=== PATIENT | female | born 1995 | race Caucasian/White ===

== ENCOUNTER 2019-04-27 14:31 | Emergency (ER) | payer BC ==
[~2019-04-27] VITALS: Ht 162.6 cm; Wt 54.9 kg
[2019-04-27 14:55] VITALS: BP 121/64
--- NOTE | 2019-04-27 14:59 | NUR ---
PT TO WAIT IN [facility]. [id number]. TACHY AT 105
--- NOTE | 2019-04-27 15:04 | NUR ---
PT STATES UNABLE TO GIVE URINE
--- NOTE | 2019-04-27 15:46 | NUR ---
EKG IN TRIAGE ROOM BY MAYELIN VELEZ
--- NOTE | 2019-04-27 16:27 | NUR ---
PT TO ER BED 5
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
--- NOTE | 2019-04-27 19:09 | NUR ---
Pt report given to ALEKS MARSHALL. Transfer of care at this time.
--- NOTE | 2019-04-27 19:10 | NUR ---
REPORT RECEIVED FROM [place] RN. PT IS AWAKE, SITTING ON BED. FATHER AT BEDSIDE. HR 110. C/O ANXIETY. DR ARZOLA AWARE. WILL CONTINUE TO MONITOR.
--- NOTE | 2019-04-27 20:10 | NUR ---
Dr. Stovall examining patient.
[2019-04-27] MEDS ORDERED: LORazepam 1 MG TAB PO ONE (20:25)
[2019-04-27 20:46] VITALS: BP 102/61
--- NOTE | 2019-04-27 20:46 | NUR ---
PT DISCHARGE WITH PAPERWORK. NO RX PROVIDED. EDUCATED PT REGARDING DISCHARGE DIAGNOSIS. EDUCATED PT THE USE OF NONPHARMACOLOGICAL INTERVENTIONS DURING ANXIETY. PT VERBALIZED UNDERSTANDING OF TEACHING. PT VSS. ALL QUESTIONS ANSWERED.
== END 2019-04-27 20:46 | disposition home or self-care (01) ==
LOC: MED 14:31
DX: F41.9 Anxiety disorder, unspecified (principal)
CPT/HCPCS: 93005; 99284